=== PATIENT | female | born 1940 | race Caucasian/White ===

== ENCOUNTER → 2016-05-03 | Outpatient (CLI) | payer MEDICARE ==
[~2016-05-03] MED LIST: CALC600T10 PO; COQ1200C PO; HYDR-3533 PO; MACR100C2 PO; MOTR200T4 PO; MULT-116 PO; PYRI100T PO; VERA180T35 PO; VITA10007 PO
[2016-05-03 10:29] LABS: AUTOMATED NEUTROPHIL # 5.3 TH/MM3 (1.8-7.7); BASOPHIL # 0.1 TH/MM3 (0-0.2); BASOPHIL % 0.9 % (0.0-2.0); EOSINOPHIL # 0.2 TH/MM3 (0-0.4); EOSINOPHIL % 2.6 % (0.0-4.0); HEMATOCRIT 41.1 % (35.0-46.0); HEMO FLAGS DIFF FINAL; LYMPH % 19.5 % (9.0-44.0); LYMPHOCYTE # 1.5 TH/MM3 (1.0-4.8); MEAN CELL VOLUME 84.5 FL (80.0-100.0); MEAN CORPUSCULAR HEMOGLOBIN 28.3 PG (27.0-34.0); MEAN CORPUSCULAR HGB CONC 33.5 % (32.0-36.0); MONO % 10.2 % (0.0-8.0); NEUT % 66.8 % (16.0-70.0); PLATELET COUNT 296 TH/MM3 (150-450); RED BLOOD COUNT 4.86 MIL/MM3 (4.00-5.30); RED CELL DISTRIBUTION WIDTH 14.9 % (11.6-17.2); WHITE BLOOD COUNT 7.9 TH/MM3 (4.0-11.0)
[2016-05-03 10:33] LABS: BACTERIA, URINE OCC /hpf; BLOOD, URINE TRACE (NEG); GLUCOSE,URINE NEG (NEG); HYALINE CAST, URINE 1 /lpf (RARE); KETONE, URINE NEG (NEG); MUCUS URINE FEW /lpf (OCC); NITRITE,URINE NEG (NEG); SQUAMOUS EPITHELIAL CELL URINE 6 /hpf (0-5); URINE COLOR YELLOW (YELLW/STRAW)
--- NOTE | 2016-05-04 08:06 | EKG ---
Date Performed: 05/03/2016 Time Performed: 10:30:24 PTAGE: 75 years EKG: Sinus rhythm Compared to previous tracing, the patient is no longer in atrial fibrillation. NORMAL ECG PREVIOUS TRACING : 10/22/2015 22.18 DOCTOR: Lester Madison Interpretating Date/Time 05/04/2016 08:05:47
== END ==
LOC: CPRE 10:04
PROVIDERS: ATTEND Obstetrics & Gynecology
DX: Z01.812 Encounter for preprocedural laboratory examination (principal); N92.0 Excessive and frequent menstruation with regular cycle
CPT/HCPCS: 36415; 81001; 85025; 93005

== ENCOUNTER 2016-05-11 05:36 | Observation (INO) | payer MEDICARE ==
[~2016-05-11] VITALS: Ht 158.8 cm; Wt 83.8 kg
[~2016-05-11 05:36] MED LIST changes: -CALC600T10 PO; -MACR100C2 PO; -VITA10007 PO
[2016-05-11] MEDS ORDERED: APREPITANT 40 MG CAP PO ONE (06:15)
[2016-05-11] MEDS ORDERED: CLINDAMYCIN 600 MG/NS 100 ML IV SCH ×2 (06:15)
[2016-05-11] MEDS ORDERED: INSULIN HUMAN REGULAR 1,000 UNITS/10 ML VIAL SQ PRN (06:15)
[2016-05-11] MEDS ORDERED: LEVOFLOXACIN 500 MG PREMIX INJ 100 ML IV ONE (06:20)
[2016-05-11] MEDS ORDERED: SODIUM CHLORIDE 0.9% INJ 100 ML ONE (06:20)
[2016-05-11 06:30] VITALS: BP 138/72; PULSE 61; RESP 18; TEMP 98.1; O2SAT 97
[2016-05-11] MEDS ORDERED: VITA10007 PO (06:30)
[2016-05-11] MEDS: LACTATED RINGER'S 1000 ML IV SCH (06:45)
[2016-05-11] MEDS: SODIUM CHLORID 0.9% 500 ML IV SCH ×2 (07:00→23:40)
[2016-05-11] MEDS ORDERED: BUPIVACAINE HCL PF 0.25% 30 ML VIAL ONE (09:28)
[2016-05-11] MEDS ORDERED: ACETAMINOPHEN 1000 MG/100 ML VIAL IV ONE (12:00)
[2016-05-11] MEDS ORDERED: SUGAMMADEX SODIUM 200 MG/2 ML VIAL IV PUSH ONE ×2 (12:01)
[2016-05-11] MEDS: LACTATED RINGER'S 1000 ML INJ 1,000 ML IV SCH ×2 (12:25→21:44)
[2016-05-11] MEDS ORDERED: DO NOT ADM ANY ANTICOAGULANT DRUGS XX PRN (12:29)
[2016-05-11] MEDS ORDERED: KETOROLAC TROMETHAMINE 30 MG/ML (IVP) VIAL IVP PRN (12:30)
[2016-05-11] MEDS ORDERED: ZOLPIDEM TARTRATE 5 MG TAB PO PRN (12:30)
[2016-05-11] MEDS ORDERED: LORazepam 0.5 MG TAB PO PRN (12:30)
[2016-05-11] MEDS ORDERED: PROMETHAZINE INJ 25 MG/ML VIAL IM PRN (12:30)
[2016-05-11] MEDS ORDERED: ONDANSETRON HCL 4 MG/2 ML VIAL IVP PRN (12:30)
[2016-05-11] MEDS ORDERED: IBUPROFEN 600 MG TAB PO PRN (12:30)
[2016-05-11] MEDS ORDERED: diphenhydrAMINE HCL 25 MG CAP PO PRN (12:30)
[2016-05-11] MEDS: SODIUM CHLORIDE 0.9% FLUSH 5 ML FLUSH FLUSH SCH ×2 (12:30→21:00)
[2016-05-11] MEDS ORDERED: oxyCODONE/ACETAMINOPHEN 5 MG/325 MG TAB PO PRN ×2 (12:30)
[2016-05-11] MEDS ORDERED: HYDROmorphone HCL PF 1 MG/ML VIAL IVP PRN (12:30)
[2016-05-11] MEDS ORDERED: SODIUM CHLORIDE 0.9% FLUSH 5 ML FLUSH FLUSH PRN (12:30)
[2016-05-11] MEDS ORDERED: fentaNYL CITRATE 250 MCG/5 ML AMP ONE (12:33)
[2016-05-11] MEDS ORDERED: *morphine SULFATE 8 MG/ML PERIprocedure ONLY ONE (12:36)
[2016-05-11] MEDS ORDERED: *ONDANSETRON 4 MG VIAL PERIprocedural Use ONLY ONE (12:38)
[2016-05-11] MEDS ORDERED: *HYDROmorphone PF 1 MG VIAL PERIprocedural Use ONLY ONE (12:59)
[2016-05-11 13:40] VITALS: BP 120/59; PULSE 67; RESP 20; TEMP 94; O2SAT 94
[2016-05-11] MEDS ORDERED: PILL SPLITTER OTHER PRN (14:00)
[2016-05-11] MEDS ORDERED: ePHEDrine/NS 50 MG/5 ML SYR IV ONE (14:42)
[2016-05-11] MEDS ORDERED: PHENYLEPH/NS 1000 MCG/10 ML SYR IV ONE (14:42)
[2016-05-11] MEDS ORDERED: ONDANSETRON HCL 4 MG/2 ML VIAL IV PUSH ONE (14:42)
[2016-05-11] MEDS ORDERED: LACTATED RINGER'S 1000 ML INJ 1,000 ML IV ONE (14:42)
[2016-05-11] MEDS ORDERED: PROPOFOL 200 MG/20 ML AMP IV ONE (14:42)
[2016-05-11 15:50] VITALS: BP 130/60; PULSE 62; RESP 20; TEMP 94.1; O2SAT 93
[2016-05-11] MEDS ORDERED: VERAPAMIL HCL 180 MG SUSTAINED RELEASE TAB PO SCH (16:00)
[2016-05-11 16:12] VITALS: O2SAT 95
[2016-05-11 20:00] VITALS: BP 121/61; PULSE 76; RESP 18; TEMP 97; O2SAT 97
[2016-05-11] MEDS: DOCUSATE SODIUM 100 MG CAP PO SCH (21:42)
[2016-05-12] VITALS: BP 142/66; PULSE 78; RESP 18; TEMP 97.8; O2SAT 96
[2016-05-12 04:00] VITALS: BP 128/67; PULSE 76; RESP 16; TEMP 96.6; O2SAT 97
[2016-05-12] MEDS: LACTATED RINGER'S 1000 ML INJ 1,000 ML IV SCH ×2 (04:07→12:25)
[2016-05-12] MEDS: LACTATED RINGER'S 1000 ML IV SCH (04:08)
[2016-05-12 08:00] VITALS: BP 132/72; PULSE 69; RESP 20; TEMP 97.1; O2SAT 96
[2016-05-12] MEDS: SODIUM CHLORIDE 0.9% FLUSH 5 ML FLUSH FLUSH SCH (08:11)
[2016-05-12] MEDS: DOCUSATE SODIUM 100 MG CAP PO SCH (08:11)
--- NOTE | 2016-05-12 10:32 | HHI.PR ---
Subjective Remarks Patient POD#1 with appropriate postop pain,voiding ,tolerating diet, no c/o of n /v/d, No f/c,No vaginal bleeding, eating well. Objective Vital Signs Vital Signs Date Time Temp Pulse Resp B/P Pulse Ox O2 Delivery O2 Flow Rate FiO2 05/12/16 08:04 1.00 05/12/16 08:00 97.1 69 20 132/72 96 05/12/16 04:00 96.6 76 16 128/67 97 05/12/16 00:00 97.8 78 18 142/66 96 05/11/16 20:00 97.0 76 18 121/61 97 05/11/16 16:12 95 Nasal Cannula 1.00 05/11/16 15:50 94.1 62 20 130/60 93 05/11/16 13:40 94.0 67 20 120/59 94 05/11/16 13:15 97.5 70 14 116/60 97 Nasal Cannula 2 05/11/16 13:00 71 12 116/59 96 Nasal Cannula 2 05/11/16 12:45 84 13 105/56 96 Nasal Cannula 2 05/11/16 12:30 80 14 117/57 96 Nasal Cannula 2 05/11/16 12:25 97.6 81 15 120/60 97 Nasal Cannula 3 I/O 05/11/16 05/11/16 05/11/16 05/12/16 05/12/16 05/12/16 07:00 15:00 23:00 07:00 15:00 23:00 Intake Total 1550 ml 600 ml 480 ml Output Total 700 ml 250 ml 500 ml Balance 850 ml 350 ml -20 ml Intake Oral 600 ml 480 ml IV Total 50 ml Other 1500 ml Output Urine Total 200 ml 250 ml 500 ml Estimated Blood Loss 100 ml Other 400 ml # Bowel Movements 0 Objective Remarks Chest is clear, regular rate and rhythm. Abdomen is soft and non-distended. Incision is clean and dry. Ext no CCE. A/P Assessment and Plan Post Op Day 1 Doing well, Stable for discharge Home today and return to office on may 17 . Robert Coates MD May 12, 2016 10:32
--- NOTE | 2016-05-12 10:34 | HHI.DCPOC ---
Discharge Care Plan Your Health Problems Are: Fever, temperature>100.4 Incisions/drains Inflammation/infection Nausea and/or vomiting Shortness of breath Vaginal bleeding Report Symptoms to Your Doctor -Temperate above 100.5 degrees -Redness, of incision or excessive or foul smelling drainage -Unusual pain or calf pain -Increased vaginal bleeding -Painful or difficulty urinating -Feelings of extreme sadness or anxiety after 2 weeks Goals to Promote Your Health * To prevent worsening of your condition and complications * To maintain your health at the optimal level Directions to Meet Your Goals Take your medications as prescribed Follow your dietary instruction Follow activity as directed Ensure plenty of rest for recovery Drink fluids for hydration Keep your appointments as scheduled Take your immunizations and boosters as scheduled If your symptoms worsen call your PCP, if no PCP go to Urgent Care Center or Emergency Room Smoking is Dangerous to Your Health. Avoid second hand smoke Call the 24-hour crisis hotline for domestic abuse at Robert Coates MD May 12, 2016 10:34
[2016-05-12 12:00] VITALS: BP 135/61; PULSE 69; RESP 16; TEMP 97.1; O2SAT 96
--- NOTE | 2016-05-17 13:00 | MP ---
cc: MARY BETH MARIE M.D., STEPHEN J. M.D. DATE OF SURGERY: 05/11/2016 PREOPERATIVE DIAGNOSIS 1. Recurrent postmenopausal bleeding, frequent and heavy. 2. Previous endoscopic resection of a polyp that was benign. PROCEDURE Total laparoscopic hysterectomy, bilateral salpingo-oophorectomy, robotic-assist, cystourethroscopy. POSTOPERATIVE DIAGNOSIS 1. Recurrent postmenopausal bleeding, frequent and heavy. 2. Previous endoscopic resection of a polyp that was benign. SURGEON Jaxon ANESTHESIA General with endotracheal intubation. ESTIMATED BLOOD LOSS 50 cc. DRAINS Xavier to gravity. OPERATIVE FINDINGS The patient had a slightly enlarged boggy uterus. Adnexa were normal. No other pathology was evident. PROCEDURE DESCRIPTION The patient received clindamycin and Levaquin as a prophylactic antibiotic intravenously prior to the procedure. She was taken to the operating room and underwent general anesthesia with endotracheal. She was carefully positioned on the operating table with appropriate padding in the dorsal lithotomy position using Greg stirrups. She had sequentials placed on lower extremities for VTE prophylaxis. She was prepped and draped. A timeout was conducted and agreed by all present in the room. The procedure was initiated by placing a Xavier catheter under sterile technique and then using a small VCare device to place through the cervical os into the uterus for manipulation during the procedure. Gloves were changed. The abdomen was examined. The patient is slightly obese. The umbilicus was injected with 0.25% plain Marcaine and a small incision was made deep within the umbilical plate. A 5 mm visible port trocar was placed directly into the peritoneal cavity without complication. Insufflation of the pneumoperitoneum was made at low pressure. The patient was then placed in steep Trendelenburg positioning allowing visualization of the pelvic anatomy which was described above. There is free mobility. There is no significant focal abnormality of the uterus or the ovaries. The uterus was upper limits of normal for a postmenopausal patient. The procedure continued by placing 8 mm trocars in the right and left flank under direct vision in an avascular plane, and then replacing the umbilical port with a 12 mm camera port. The [facility] patient cart was then side docked with the #2 arm on the left and the #1 arm on the right. Monopolar scissors were attached to the #2 arm and a bipolar [place] grasper to the #1 arm. Excellent articulation with no collisions was noted. Attention was directed to the surgeon cart where identification of the anatomy was made and then the dissection initiated by opening the retroperitoneal space anteriorly after dividing the round ligament, identifying the infundibular pelvic vessels away from the ureter and skeletonizing vessels en bloc to provide a hemostatic pedicle. The dissection continued by skeletonizing the uterine artery and vein bilaterally, making the uterus avascular, and then a colpotomy incision was made posteriorly and then brought back anteriorly to complete colpotomy to remove the uterus transvaginally. The uterus, cervix and adnexa were removed completely without difficulty. The #2 arm was replaced with a needle trolley coach driver. A #1 Stratafix suture was then used to close the vaginal cuff in a linear fashion with good result. There was no active bleeding or hematoma. The bladder was intact. Both ureters were peristalsing normally. After closure of the vaginal cuff, the surgical dental assistant used a sponge stick to test the integrity of the cuff by simple gentle pressure which revealed good closure, no gaps or defect. After completion of the robotic laparoscopic portion, the patient cart was undocked. Straight laparoscopy was utilized. The suture needles were trimmed flush with the peritoneum allowing retrieval of the needled. Full count was made and correct. The pelvis was irrigated with copious normal saline and observation off pressure revealed no active bleeding or hematoma. The umbilical port was then closed with a #1 Vicryl suture using the CrossBow technique with good closure. After completion of the umbilicus the pneumoperitoneum was decompressed through the remaining trocars. The trocars were removed after evacuation of the CO2. The incisions were closed with a 4-0 Monocryl in a subcuticular fashion with Steri-Strips and Band-Aids placed over the incision. The 5 mm laparoscope was utilized to do a cystoscopy. The urine had been draining clear throughout the entire case. The bladder was back-filled with sterile normal saline. The Xavier catheter was decompressed and released and then insertion of the 5 mm laparoscope revealed complete integrity of the bladder, no perforations, no suture placement. No focal abnormality was evident. Both ureters were peristalsing normally, ejecting clear urine forcibly through each ureteral orifice. After completion of the cysto the Xavier catheter was reinserted. Re-examination of the vaginal cuff was intact. The full final count was correct. The patient was taken to the recovery room extubated on room air. MD RAMU York/ADAM /12:39 PM /12:43 PM
== END 2016-05-12 13:39 | disposition home or self-care (01) ==
LOC: HSDC 05:36 → HSDI 13:15 → HOCB 13:25
PROVIDERS: ADMIT Obstetrics & Gynecology; ATTEND Obstetrics & Gynecology
DX: N95.0 Postmenopausal bleeding (principal); N80.0 Endometriosis of uterus; D25.9 Leiomyoma of uterus, unspecified; N88.8 Other specified noninflammatory disorders of cervix uteri; N83.202 Unspecified ovarian cyst, left side; N83.201 Unspecified ovarian cyst, right side; I48.91 Unspecified atrial fibrillation; I10 Essential (primary) hypertension
CPT/HCPCS: 00840; 58552; 86850; 86900; 86901; 88307; 94150; G0378; J0131; J1170; J1956; J2270; J2370; J2405; J3010; J7120; J8501